=== PATIENT | male | born 1985 | race American Indian/Alaskan Native ===

== ENCOUNTER 2017-08-28 12:25 | Inpatient (IN) | payer MEDICAID ==
[2017-08-28 12:29] VITALS: O2SAT 97; BMI 23.5
--- NOTE | 2017-08-28 12:36 | ED PDOC ---
Psych Transfer Clearance - Clearance Statement Clearance Statement: Reviewed vital signs, lab results and transfer papers. Patient clinically stable for psychiatric admission.
[2017-08-28] MEDS ORDERED: Magnesium Hydroxide Susp 30 ml UD PO PRN (13:08)
[2017-08-28] MEDS ORDERED: DiphenhydrAMINE 50 mg/ml Inj IM PRN (13:08)
[2017-08-28] MEDS ORDERED: Alum-Mag Hydrox-Simethicone Susp (30 mL) PO PRN (13:08)
--- NOTE | 2017-08-28 13:10 | PCM.PSYCH ---
Initial Psychiatric Evaluation - Initial Psychiatric Evaluation Type of Admission: Voluntary Legal Status: Capacity Chief Complaint (in patient's own words): "I'm depressed and feeling suicidal" Patient's Reaction to Hospitalization: HPI: 32 yo male w/ h/o depression, cocaine/theresa/marijuana use, presents w/ depressed mood and active suicidal ideation to kill himself w/ plan to cut. Patient has a history of self injurious behaviors and states that he attempted to kill himself by cutting his wrists in Mar 2017 (patient has visible scars). He reports that he also has vague ideation to harm others. No current AH/VH , but he does reports a history of AH. He reports sleep and appetite disturbances, low energy, depressed mood and feelings of hopelessness. He states that he has no reason to live at this time. PPHx: H/o multiple past psychiatric admissions, but patient is not compliant with treatment or medications. H/o treatment with Remeron and Zoloft which he believes were helpful in the past. 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) Current Medications: Active Medications Generic Name Dose Route Start Last Admin Trade Name Freq PRN Reason Stop Dose Admin Acetaminophen 650 mg 08/28/17 13:08 Tylenol 325mg Tab PO Q4 PRN Pain, moderate (4-7) Al Hydrox/Mg Hydrox/Simethicone 30 ml 08/28/17 13:08 Maalox Plus 30 Ml PO Q4 PRN Dyspepsia Diphenhydramine HCl 50 mg 08/28/17 13:08 Benadryl IM Q6 PRN Extrapyramidal S/S Unable PO Diphenhydramine HCl 50 mg 08/28/17 13:08 Benadryl PO Q6 PRN Extrapyramidal Symptoms Haloperidol 5 mg 08/28/17 13:08 Haldol PO Q4 PRN Agitation Haloperidol Lactate 5 mg 08/28/17 13:08 Haldol IM Q4 PRN Agitation, Unable to Take PO Lorazepam 2 mg 08/28/17 13:08 Ativan IM Q4 PRN Anxiety/Agitation,Unable PO Lorazepam 2 mg 08/28/17 13:08 Ativan PO Q4 PRN Anxiety/Agitation Magnesium Hydroxide 30 ml 08/28/17 13:08 Milk Of Magnesia PO HS PRN Constipation Past Psychiatric History - Past Psychiatric History Previous Treatment History: Inpatient Pertinent Medical Hx (Current Medical&Sleep Prob, Allergies): Allergies Allergy/AdvReac Type Severity Reaction Status Date / Time haloperidol [From Haldol] Allergy SHORTNESS Verified 08/27/17 16:41 OF BREATH iodine Allergy RASH Verified 08/27/17 16:40 Review of Systems - Psychiatric Psychiatric: Abnormal Sleep Pattern, Anhedonia, Anxiety, Behavioral Changes, Change in Appetite, Depression, Difficulty Concentrating, Hopelessness, Irritability, Mood Swings, Suicidal Ideation Mental Status Examination - Personal Presentation Personal Presentation: Looks stated age - Affect Affect: Depressed, Other (Labile, Tearful) - Motor Activity Motor Activity: Psychomotor Agitation - Reliability in Providing Information Reliability in Providing Information: Fair - Speech Speech: Organized - Mood Mood: Depressed, Anxious - Formal Thought Process Formal Thought Process: No Impairment - Hallucinations/Delusions Additional comments: Denies AH/VH/paranoia/delusions - Obsessions/Compulsions Obsessions: No Compulsions: No - Cognitive Functions Orientation: Person, Place, Situation, Time Sensorium: Alert Attention/Concentration: Attentive Estimate of Intelligence: Average Judgement: Intact, as evidence by: Insight regarding need for hospitalization Memory: Recent intact, as evidence by: Ability to recall events of the day - Risk Risk: Suicidal, Diminished functioning - Strength & Assets Inventory Strength & Assets Inventory: Cooperative - Limitations Limitations: Other (Homelessness, Poverty, lack of social support) DSM 5 DX - DSM 5 DSM 5 Diagnosis: Substance Induced Mood Disorder; Cocaine Use Disorder; MDMA Use Disorder; Marijuana Use Disorder - Recommended/Plan of Treatment Treatment Recommendations and Plan of Treatment: Substance Induced Mood Disorder; Cocaine Use Disorder; MDMA Use Disorder; Marijuana Use Disorder -Admit to psychiatry -Individual and group therapy -Psychoeducation and motivational interviewing -Medicine consult -Start Remeron 15 mg PO HS -1:1 for suicide precaution; patient unable to contract for safety at this time -Disposition planning Projected ELOS: 5-8 days Discharge Plan and Discharge Criteria: Discharge when patient is psychiatrically stable - Smoking Cessation Smoking Cessation Initiated: No Reason for not providing: Patient declined
[2017-08-28] MEDS ORDERED: Albuterol-Ipratrop 3 mg / 0.5 (3 ml) UD INH PRN (13:11)
[2017-08-28] MEDS: Albuterol HFA 90 mcg/actuation (8 g) INH PRN (13:20)
--- NOTE | 2017-08-28 19:30 | PCM.BM ---
<Adel,Missy - Last Filed: 08/28/17 19:28> Treatment assets and liabiliti Patient Assests: ADL independent, cognitively intact Patient Liabilities: physical pain, poor support system, relationship conflicts - Milieu Protocol Maintain good personal hygiene: daily Encourage regular showers, every shift Remind patient to perform daily oral care, every shift Assist patient to perform ADL's Conduct patient checks and document Observation sheet: Q15 minutes, 1:1 Maintain personal safety: every shift Educate patient to report safety concerns to staff, every shift Monitor environment for contraband/sharps Medication safety: Monitor for expected outcome, potential side effects: every shift, Assess barriers to learning: every shift, Assess readiness for medication education: every shift Milieu Narrative: Substance Induced Mood Disorder; Cocaine Use Disorder; MDMA Use Disorder; Marijuana Use Disorder -Admit to psychiatry -Individual and group therapy -Psychoeducation and motivational interviewing -Medicine consult -Start Remeron 15 mg PO HS -1:1 for suicide precaution; patient unable to contract for safety at this time -Disposition planning Discharge/Continuing Care - Treatment Team Participation Patient/Family/SO Statement: Substance Induced Mood Disorder; Cocaine Use Disorder; MDMA Use Disorder; Marijuana Use Disorder -Admit to psychiatry -Individual and group therapy -Psychoeducation and motivational interviewing -Medicine consult -Start Remeron 15 mg PO HS -1:1 for suicide precaution; patient unable to contract for safety at this time -Disposition planning <Scott Lamb - Last Filed: 09/02/17 11:40> Family Contact Family involvement: Famliy/SO not involved Family contact: Patient declines to allow family contact at present Family contact name: Pt Denied. - Goals for Treatment Patient goals for treatment: Pt would like to be referred to a residential rehab. Discharge/Continuing Care - Education Needs Education Needs: Patient Medication, Patient Diagnosis/Disease Process, Patient Coping Skills, Patient Placement options, Patient Community resources, Patient Personal Hygiene/Grooming, Patient Aftercare Safety Plan - Discharge Discharge Criteria: Tolerates medication w/o severe side effects, Free of Suicidal thoughts, Free of paranoid thoughts, Free of agitation, Normal sleep pattern, No longer exhibiting s/s of withdrawal, Reduction of target symptoms Discharge to:: Home, With Family - Additional Comments 09/02/17 11:38 Pt was irritable, oppositional and threatening during treatment team. Pt again and again requested to be transferred to [facility] and had already requested to meet with a pt advocate. Pt has unrealistic expectations of a psychiatric hospital and was focused on concrete services and did not discuss any mental health symptoms or goals. - Treatment Team Participation Discussed with Family/SO: No Was Patient/Family/SO present at Treatment Team Meeting: Yes
[2017-08-29 07:25] LABS: BASO % 0.9 % (0.0-2.0); EOS # 0.5 K/uL (0.0-0.7); EOS % 12.2 % (0.0-4.0); HEMOGLOBIN 16.1 g/dL (12.0-18.0); LYMPH # 1.3 K/uL (1.0-4.3); LYMPH % 35.3 % (20.0-40.0); MEAN CELL VOLUME 92.9 fl (80.0-94.0); MEAN CORPUSCULAR HEMOGLOBIN 31.2 pg (27.0-31.0); MEAN CORPUSCULAR HGB CONC 33.6 g/dL (33.0-37.0); MEAN PLATELET VOLUME 8.1 fl (7.2-11.7); MONO # 0.3 K/uL (0.0-0.8); NEUT # 1.7 K/uL (1.8-7.0); NEUT % 44.6 % (50.0-75.0); NRBC % 0.2 % (0.0-0.0); RBC 5.15 Mil/uL (4.40-5.90); RED CELL DISTRIBUTION WIDTH 14.3 % (11.5-14.5); WHITE BLOOD COUNT 3.8 K/uL (4.8-10.8)
[2017-08-29 07:47] LABS: ALB/GLOB RATIO 1.3 (1.0-2.1); ALBUMIN 3.7 g/dL (3.5-5.0); ALT/SGPT 36 U/L (21-72); AST/SGOT 21 U/L (17-59); BLOOD UREA NITROGEN 16 mg/dl (9-20); CALCIUM 9.3 mg/dL (8.4-10.2); GFR AFRICAN-AMERICAN > 60; GFR NON-AFRICAN AMERICAN 60; HDL CHOLESTEROL 49 MG/DL (30-70)
[2017-08-29 07:58] LABS: LDL CHOLESTEROL 47 mg/dL (0-129)
[2017-08-29 08:02] LABS: T4 6.89 ug/dl (5.5-11.0)
--- NOTE | 2017-08-29 10:15 | CP.PCM.CON ---
<Juan Ruiz - Last Filed: 08/29/17 14:59> History of Present Illness - History of Present Illness History of Present Illness: Hospitalist Consult Note- Dr. Washington 32 y.o male with PMH of asthma seen and evaluated in the psychiatry unit for depression. Patient was seen in the ER for suicidal ideal and homicidal ideation for 2 days with worsening depression. Patient denies n/v/sob/cp/chills or chest pain. No pain anywhere. PMH: asthma PSH: b/l foot surgeries SH: reports cocaine, ecstasy, marijuana use, smoking cigarettes ALL: haloperiodol, iodine MEDS: see medication list Past Patient History - Past Social History Smoking Status: Heavy Smoker > 10 Cigarettes Daily - CARDIAC Hx Cardiac Disorders: No - PULMONARY Hx Asthma: Yes - NEUROLOGICAL Hx Neurological Disorder: No - HEENT Hx HEENT Problems: No - RENAL Hx Chronic Kidney Disease: No - ENDOCRINE/METABOLIC Hx Endocrine Disorders: No - HEMATOLOGICAL/ONCOLOGICAL Hx Blood Disorders: No - INTEGUMENTARY Hx Dermatological Problems: No - MUSCULOSKELETAL/RHEUMATOLOGICAL Hx Musculoskeletal Disorders: No Other/Comment: clubbed feet both - GASTROINTESTINAL Hx Gastrointestinal Disorders: No - GENITOURINARY/GYNECOLOGICAL Hx Genitourinary Disorders: No - PSYCHIATRIC Hx Substance Use: Yes - SURGICAL HISTORY Hx Surgeries: Yes Other/Comment: bilateral foot surgery - ANESTHESIA Hx Anesthesia: Yes Hx Anesthesia Reactions: No Meds Allergies/Adverse Reactions: Allergies Allergy/AdvReac Type Severity Reaction Status Date / Time haloperidol [From Haldol] Allergy SHORTNESS Verified 08/27/17 16:41 OF BREATH iodine Allergy RASH Verified 08/27/17 16:40 - Medications Medications: Current Medications Acetaminophen (Tylenol 325mg Tab) 650 mg PO Q4 PRN PRN Reason: Pain, moderate (4-7) Al Hydrox/Mg Hydrox/Simethicone (Maalox Plus 30 Ml) 30 ml PO Q4 PRN PRN Reason: Dyspepsia Albuterol (Ventolin Hfa 90 Mcg/Actuation (8 G)) 2 puff INH RQ6 PRN PRN Reason: Shortness of Breath Last Admin: 08/28/17 13:20 Dose: 2 puff Albuterol/Ipratropium (Duoneb 3 Mg/0.5 Mg (3 Ml) Ud) 3 ml INH RQ4 PRN PRN Reason: Shortness of Breath Diphenhydramine HCl (Benadryl) 50 mg IM Q6 PRN PRN Reason: Extrapyramidal S/S Unable PO Diphenhydramine HCl (Benadryl) 50 mg PO Q6 PRN PRN Reason: Extrapyramidal Symptoms Lorazepam (Ativan) 2 mg IM Q4 PRN PRN Reason: Anxiety/Agitation,Unable PO Lorazepam (Ativan) 2 mg PO Q4 PRN PRN Reason: Anxiety/Agitation Last Admin: 08/28/17 13:37 Dose: 2 mg Magnesium Hydroxide (Milk Of Magnesia) 30 ml PO HS PRN PRN Reason: Constipation Mirtazapine (Remeron) 15 mg PO HS TRACIE Last Admin: 08/28/17 21:38 Dose: 15 mg Olanzapine (Zyprexa Inj) 10 mg IM Q12 PRN PRN Reason: Agitation Physical Exam - Constitutional Appears: Well, Non-toxic, No Acute Distress - Head Exam Head Exam: ATRAUMATIC, NORMOCEPHALIC - Eye Exam Eye Exam: EOMI, Normal appearance, PERRL Pupil Exam: NORMAL ACCOMODATION - ENT Exam ENT Exam: Mucous Membranes Moist, Normal Exam - Neck Exam Neck exam: Positive for: Normal Inspection - Respiratory Exam Respiratory Exam: Clear to Auscultation Bilateral, NORMAL BREATHING PATTERN. absent: Prolonged Expiratory Phase, Rales, Rhonchi, Wheezes, Respiratory Distress, Stridor - Cardiovascular Exam Cardiovascular Exam: REGULAR RHYTHM, +S1, +S2 - GI/Abdominal Exam GI & Abdominal Exam: Normal Bowel Sounds, Soft - Extremities Exam Extremities exam: Positive for: normal capillary refill. Negative for: calf tenderness - Neurological Exam Neurological exam: Alert, Oriented x3 - Psychiatric Exam Psychiatric exam: Normal Affect, Normal Mood - Skin Skin Exam: Dry, Intact, Normal Color, Warm Results - Vital Signs Recent Vital Signs: Last Vital Signs Temp 97.3 F L 08/29/17 09:00 Pulse 86 08/29/17 09:00 Resp 18 08/29/17 09:00 BP 118/68 08/29/17 09:00 Pulse Ox 97 08/28/17 12:29 - Labs Result Diagrams: 08/29/17 06:45 08/29/17 06:45 Labs: Laboratory Results - last 24 hr 08/29/17 08/29/17 06:45 06:45 WBC 3.8 L RBC 5.15 Hgb 16.1 Hct 47.8 MCV 92.9 MCH 31.2 H MCHC 33.6 RDW 14.3 Plt Count 207 MPV 8.1 Neut % (Auto) 44.6 L Lymph % (Auto) 35.3 Pitkin % (Auto) 7.0 Eos % (Auto) 12.2 H Baso % (Auto) 0.9 Neut # (Auto) 1.7 L Lymph # (Auto) 1.3 Pitkin # (Auto) 0.3 Eos # (Auto) 0.5 Baso # (Auto) 0.0 Sodium 142 Potassium 4.3 Chloride 101 Carbon Dioxide 29 Anion Gap 16 BUN 16 Creatinine 1.4 Est GFR ( Amer) > 60 Est GFR (Non-Af Amer) 60 Random Glucose 91 Calcium 9.3 Total Bilirubin 1.5 H AST 21 ALT 36 Alkaline Phosphatase 37 L Total Protein 6.6 Albumin 3.7 Globulin 2.9 Albumin/Globulin Ratio 1.3 Triglycerides 56 Cholesterol 114 LDL Cholesterol Direct 47 HDL Cholesterol 49 Thyroxine (T4) 6.89 TSH 3rd Generation 0.70 Assessment & Plan - Assessment and Plan (Free Text) Assessment: 32 y.o male with PMH of asthma admitted for worsening depression with suicidal ideation Plan: 1. Worsening depression/suicidal ideation -management per psychiatry 2. Asthma -albuterol prn <James Washington - Last Filed: 08/29/17 16:42> Meds - Medications Medications: Current Medications Acetaminophen (Tylenol 325mg Tab) 650 mg PO Q4 PRN PRN Reason: Pain, moderate (4-7) Al Hydrox/Mg Hydrox/Simethicone (Maalox Plus 30 Ml) 30 ml PO Q4 PRN PRN Reason: Dyspepsia Albuterol (Ventolin Hfa 90 Mcg/Actuation (8 G)) 2 puff INH RQ6 PRN PRN Reason: Shortness of Breath Last Admin: 08/28/17 13:20 Dose: 2 puff Albuterol/Ipratropium (Duoneb 3 Mg/0.5 Mg (3 Ml) Ud) 3 ml INH RQ4 PRN PRN Reason: Shortness of Breath Diphenhydramine HCl (Benadryl) 50 mg IM Q6 PRN PRN Reason: Extrapyramidal S/S Unable PO Diphenhydramine HCl (Benadryl) 50 mg PO Q6 PRN PRN Reason: Extrapyramidal Symptoms Lorazepam (Ativan) 2 mg IM Q4 PRN PRN Reason: Anxiety/Agitation,Unable PO Lorazepam (Ativan) 1 mg PO TID PRN PRN Reason: Anxiety Magnesium Hydroxide (Milk Of Magnesia) 30 ml PO HS PRN PRN Reason: Constipation Mirtazapine (Remeron) 15 mg PO HS TRACIE Last Admin: 08/28/17 21:38 Dose: 15 mg Olanzapine (Zyprexa Inj) 10 mg IM Q12 PRN PRN Reason: Agitation Topiramate (Topamax) 50 mg PO BID TRACIE Results - Vital Signs Recent Vital Signs: Last Vital Signs Temp 97.4 F L 08/29/17 16:26 Pulse 88 08/29/17 16:26 Resp 20 08/29/17 16:26 BP 120/70 08/29/17 16:26 Pulse Ox 97 08/28/17 12:29 - Labs Result Diagrams: 08/29/17 06:45 08/29/17 06:45 Labs: Laboratory Results - last 24 hr 08/29/17 08/29/17 08/29/17 06:45 06:45 06:45 WBC 3.8 L RBC 5.15 Hgb 16.1 Hct 47.8 MCV 92.9 MCH 31.2 H MCHC 33.6 RDW 14.3 Plt Count 207 MPV 8.1 Neut % (Auto) 44.6 L Lymph % (Auto) 35.3 Pitkin % (Auto) 7.0 Eos % (Auto) 12.2 H Baso % (Auto) 0.9 Neut # (Auto) 1.7 L Lymph # (Auto) 1.3 Pitkin # (Auto) 0.3 Eos # (Auto) 0.5 Baso # (Auto) 0.0 Sodium 142 Potassium 4.3 Chloride 101 Carbon Dioxide 29 Anion Gap 16 BUN 16 Creatinine 1.4 Est GFR ( Amer) > 60 Est GFR (Non-Af Amer) 60 Random Glucose 91 Hemoglobin A1c 4.7 Calcium 9.3 Total Bilirubin 1.5 H AST 21 ALT 36 Alkaline Phosphatase 37 L Total Protein 6.6 Albumin 3.7 Globulin 2.9 Albumin/Globulin Ratio 1.3 Triglycerides 56 Cholesterol 114 LDL Cholesterol Direct 47 HDL Cholesterol 49 Thyroxine (T4) 6.89 TSH 3rd Generation 0.70 RPR 08/29/17 06:45 WBC RBC Hgb Hct MCV MCH MCHC RDW Plt Count MPV Neut % (Auto) Lymph % (Auto) Pitkin % (Auto) Eos % (Auto) Baso % (Auto) Neut # (Auto) Lymph # (Auto) Pitkin # (Auto) Eos # (Auto) Baso # (Auto) Sodium Potassium Chloride Carbon Dioxide Anion Gap BUN Creatinine Est GFR ( Amer) Est GFR (Non-Af Amer) Random Glucose Hemoglobin A1c Calcium Total Bilirubin AST ALT Alkaline Phosphatase Total Protein Albumin Globulin Albumin/Globulin Ratio Triglycerides Cholesterol LDL Cholesterol Direct HDL Cholesterol Thyroxine (T4) TSH 3rd Generation RPR Nonreactive
--- NOTE | 2017-08-29 15:05 | PCM.PYCHPN ---
Psychiatric Progress Note - Psychiatric Progress Note Patient seen today, length of contact: pt evaluated discussed with team chart reviewed Patient Chief Complaint: I am tired and depressed Problems Identified/Issues Discussed: pt seen in bed, poor eye contact, irritable mood and affect, reported feeling depressed and tired, pt stated he used Moly and cocaine, currently gowing through withdrawals, pt denied any current suicidal ideations, pt had an anger episode in the dinning room, on further evaluation stated he needs help with housing on discharge discussed with pt referral to rehab on discharge pt denied any current homicidal ideations or perceptual disturbances, no reported side effect of medications DSM 5 Symptoms Update: cocaine inducced mood disorder with depressive features cocaine use diorder MDMA use disorder Medication Change: Yes (start risperidone and topamax) Medical Record Reviewed: Yes Mental Status Examination - Cognitive Function Orientation: Person, Place, Situation, Time Attention: Poor Fund of Knowledge: Poor Decription of patient's judgement and insights: impaired insight and poor judgement - Mood Mood: Depressed, Anxious - Affect Affect: Depressed, Other (Labile, Tearful) - Speech Speech: Loud - Formal Thought Process Formal Thought Process: Circumstantial Psychotic Thoughts and Behaviors: pt denied any current perceptual disturbances, non elicited - Suicidal Ideation Suicidal Ideation: No - Homicidal Ideation Homicidal Ideation: No Goal/Treatment Plan - Goal/Treatment Plan Need for Continued Stay: Severe depression anxiety, Discharge may exacerbated symptoms Progress Toward Problem(s) and Goals/Treatment Plan: continure with remeron start topamax 50mg bid Motivational, group and supportive therapy
--- NOTE | 2017-08-30 18:04 | PCM.PYCHPN ---
Psychiatric Progress Note - Psychiatric Progress Note Patient seen today, length of contact: pt evaluated discussed with team chart reviewed Patient Chief Complaint: I am tired and depressed, I do not want to attaend groups Problems Identified/Issues Discussed: pt seen in bed, poor eye contact, irritable mood and affect, continues to present with depressed mood and affect, anhedonia, poor energy, currently continues to be gowing through withdrawals, pt denied any current suicidal ideations, pt had an anger episode when asjked to attend groups, non compliant with treatment, needs alot of encouragement to take medications pt denied any current homicidal ideations or perceptual disturbances, no reported side effect of medications DSM 5 Symptoms Update: polysubstance use major depression Medication Change: Yes (start neurontin) Medical Record Reviewed: Yes Mental Status Examination - Cognitive Function Orientation: Person, Place, Situation, Time Attention: Poor Fund of Knowledge: Poor Decription of patient's judgement and insights: impaired insight and poor judgement - Mood Mood: Depressed, Anxious - Affect Affect: Depressed, Other (Labile, Tearful) - Speech Speech: Loud - Formal Thought Process Formal Thought Process: Circumstantial Psychotic Thoughts and Behaviors: pt denied any current perceptual disturbances, non elicited - Suicidal Ideation Suicidal Ideation: No - Homicidal Ideation Homicidal Ideation: No Goal/Treatment Plan - Goal/Treatment Plan Need for Continued Stay: Severe depression anxiety, Discharge may exacerbated symptoms Progress Toward Problem(s) and Goals/Treatment Plan: continure with remeron wellbutrin 75mg neurontin 100mg tid encourage pt to attend groups Motivational, group and supportive therapy
--- NOTE | 2017-08-31 15:45 | PCM.PYCHPN ---
Psychiatric Progress Note - Psychiatric Progress Note Patient seen today, length of contact: pt evaluated discussed with team chart reviewed Patient Chief Complaint: I want to go to another hospital because I have a pillowcase cutter there Problems Identified/Issues Discussed: pt evaluated with the treatment team, pt requesting to go to [facility] as he is linked there to a case manger and anticipates more help with his housing problems, pt was able to meet with pt advocate and understands he could not be transferred as per hospital policy pt continues to be depressed anhedonic seclusive in his room, needed a lot of encouragement to attend few groups continues to present as hopeless and helpless denied any current suicidal ideations plan or intent on the unit denied homicidal ideations denied command hallucinations DSM 5 Symptoms Update: major depression polysubstance use disorder Medication Change: Yes (increase neurontin and wellbutrin) Medical Record Reviewed: Yes Mental Status Examination - Cognitive Function Orientation: Person, Place, Situation, Time Attention: WNL Concentration: WNL Association: WNL Fund of Knowledge: WNL Decription of patient's judgement and insights: partial insight and poor judgement - Mood Mood: Depressed, Anxious - Affect Affect: Depressed, Other (Labile, Tearful) - Speech Speech: Loud - Formal Thought Process Formal Thought Process: Circumstantial Psychotic Thoughts and Behaviors: pt denied any current perceptual disturbances, non elicited - Suicidal Ideation Suicidal Ideation: No - Homicidal Ideation Homicidal Ideation: No Goal/Treatment Plan - Goal/Treatment Plan Need for Continued Stay: Severe depression anxiety, Discharge may exacerbated symptoms Progress Toward Problem(s) and Goals/Treatment Plan: continure with remeron wellbutrin 100mg bid neurontin 100mg tid encourage pt to attend groups Motivational, group and supportive therapy
--- NOTE | 2017-09-01 14:23 | PCM.PYCHPN ---
Psychiatric Progress Note - Psychiatric Progress Note Patient seen today, length of contact: pt evaluated discussed with team chart reviewed Patient Chief Complaint: I STILL GET IRRITABLE AND HYPER Problems Identified/Issues Discussed: pt evaluated , MORE VISIBLE ON THE UNIT, LESS SECLUSIVE, INTERACTING WITH OTHER PEERS AND ATTENDING GROUPS, pt presenting with labile affect, irritability episodes of poor impulse control , discussed with pt increasing neurontin for anxiety and mood stabilization also increase in remeron for poor sleep discussed with pt possible referral to inpatient rehab on discharge pt denied any current suicidal or homicidal ideations denied perceptual disturbances. no reported side effects of medications DSM 5 Symptoms Update: bipolar disorder poly substance use disorder Medication Change: Yes (increase neurontin and remeron) Medical Record Reviewed: Yes Mental Status Examination - Cognitive Function Orientation: Person, Place, Situation, Time Attention: WNL Concentration: WNL Association: WNL Fund of Knowledge: WN Decription of patient's judgement and insights: partial insight and poor judgement - Mood Mood: Depressed, Anxious - Affect Affect: Depressed, Other (Labile, Tearful) Additional comments: labile, irritable - Speech Speech: Loud - Formal Thought Process Formal Thought Process: Circumstantial Psychotic Thoughts and Behaviors: pt denied any current perceptual disturbances, non elicited - Suicidal Ideation Suicidal Ideation: No - Homicidal Ideation Homicidal Ideation: No Goal/Treatment Plan - Goal/Treatment Plan Need for Continued Stay: Severe depression anxiety, Discharge may exacerbated symptoms Progress Toward Problem(s) and Goals/Treatment Plan: increase remeron to 30mg qhs wellbutrin 100mg bid neurontin 300mg tid encourage pt to attend groups Motivational, group and supportive therapy
[2017-09-02] MEDS: Albuterol HFA 90 mcg/actuation (8 g) INH PRN (10:50)
--- NOTE | 2017-09-02 15:40 | PCM.PYCHPN ---
Psychiatric Progress Note - Psychiatric Progress Note Patient seen today, length of contact: pt evaluated discussed with team chart reviewed Patient Chief Complaint: I still could not sleep and I loose my temper easily Problems Identified/Issues Discussed: pt evaluated , reported continues to have early insomnia, poor sleep pt presenting with labile affect, irritability episodes of poor impulse control , discussed with pt increasing neurontin for anxiety and mood stabilization also increase in remeron for poor sleep discussed with pt possible referral to inpatient rehab on discharge pt denied any current suicidal or homicidal ideations denied perceptual disturbances. no reported side effects of medications DSM 5 Symptoms Update: polysubstance use bipolar disorder antisocial personality Medication Change: Yes (start seroquel) Medical Record Reviewed: Yes Mental Status Examination - Cognitive Function Orientation: Person, Place, Situation, Time Attention: WNL Concentration: WNL Association: WNL Fund of Knowledge: WN Decription of patient's judgement and insights: partial insight and poor judgement - Mood Mood: Depressed, Anxious - Affect Affect: Depressed, Other (Labile, Tearful) - Speech Speech: Loud - Formal Thought Process Formal Thought Process: Circumstantial Psychotic Thoughts and Behaviors: pt denied any current perceptual disturbances, non elicited - Suicidal Ideation Suicidal Ideation: No - Homicidal Ideation Homicidal Ideation: No Goal/Treatment Plan - Goal/Treatment Plan Need for Continued Stay: Severe depression anxiety, Discharge may exacerbated symptoms Progress Toward Problem(s) and Goals/Treatment Plan: increase remeron to 30mg qhs wellbutrin 100mg bid neurontin 300mg tid start seroquel 100mg qhs encourage pt to attend groups Motivational, group and supportive therapy
[2017-09-03] MEDS: Albuterol HFA 90 mcg/actuation (8 g) INH PRN (07:34)
--- NOTE | 2017-09-03 16:04 | PCM.PYCHPN ---
Psychiatric Progress Note - Psychiatric Progress Note Patient seen today, length of contact: pt evaluated discussed with team chart reviewed Patient Chief Complaint: I slept better with seroquel and I am calmer today Problems Identified/Issues Discussed: pt evaluated , improved sleep, mood better and less irritable affect calmer , no current behavioral disturbances reported by staff discussed with pt possible referral to inpatient rehab on discharge pt denied any current suicidal or homicidal ideations denied perceptual disturbances. no reported side effects of medications DSM 5 Symptoms Update: polysubstance use bipolar disorder Medication Change: Yes (increase seroquel) Medical Record Reviewed: Yes Mental Status Examination - Cognitive Function Orientation: Person, Place, Situation, Time Attention: WNL Concentration: WNL Association: WNL Fund of Knowledge: [facility] Decription of patient's judgement and insights: partial insight and poor judgement - Mood Mood: Depressed, Anxious - Affect Affect: Depressed, Other (Labile, Tearful) - Speech Speech: Appropriate - Formal Thought Process Formal Thought Process: Circumstantial Psychotic Thoughts and Behaviors: pt denied any current perceptual disturbances, non elicited - Suicidal Ideation Suicidal Ideation: No - Homicidal Ideation Homicidal Ideation: No Goal/Treatment Plan - Goal/Treatment Plan Need for Continued Stay: Severe depression anxiety, Discharge may exacerbated symptoms Progress Toward Problem(s) and Goals/Treatment Plan: remeron o 30mg qhs wellbutrin 100mg bid neurontin 300mg tid increase seroquel 200mg qhs encourage pt to attend groups Motivational, group and supportive therapy
--- NOTE | 2017-09-04 13:54 | PCM.PYCHPN ---
Psychiatric Progress Note - Psychiatric Progress Note Patient seen today, length of contact: pt evaluated discussed with team chart reviewed Patient Chief Complaint: I am feeling better Problems Identified/Issues Discussed: pt evaluated , improved sleep, mood better and less irritable affect calmer , no current behavioral disturbances reported by staff discussed with pt possible referral to inpatient rehab on discharge pt denied any current suicidal or homicidal ideations denied perceptual disturbances. no reported side effects of medications DSM 5 Symptoms Update: bipolar disorder polysubstance use disorder Medication Change: No Medical Record Reviewed: Yes Mental Status Examination - Cognitive Function Orientation: Person, Place, Situation, Time Attention: WNL Concentration: WNL Association: [facility] Fund of Knowledge: [facility] Decription of patient's judgement and insights: partial insight and poor judgement - Mood Mood: Depressed, Anxious - Affect Affect: Depressed, Other (Labile, Tearful) - Speech Speech: Appropriate - Formal Thought Process Formal Thought Process: Circumstantial Psychotic Thoughts and Behaviors: pt denied any current perceptual disturbances, non elicited - Suicidal Ideation Suicidal Ideation: No - Homicidal Ideation Homicidal Ideation: No Goal/Treatment Plan - Goal/Treatment Plan Need for Continued Stay: Severe depression anxiety, Discharge may exacerbated symptoms Progress Toward Problem(s) and Goals/Treatment Plan: remeron 30mg qhs wellbutrin 100mg bid neurontin 300mg tid seroquel 200mg qhs Motivational, group and supportive therapy
[2017-09-05] MEDS ORDERED: DiphenhydrAMINE 50 mg/ml Inj IM PRN (09:59)
[2017-09-05] MEDS: Albuterol HFA 90 mcg/actuation (8 g) INH PRN (13:38)
--- NOTE | 2017-09-05 14:52 | PCM.PYCHPN ---
Psychiatric Progress Note - Psychiatric Progress Note Patient seen today, length of contact: pt evaluated discussed with team chart reviewed Patient Chief Complaint: I need to know where I AM going Problems Identified/Issues Discussed: pt presenting with angry mood and affect, irritable, explosive throwing his tray in the dinning room, after discussing with him his discharge plan, pt very angry about the possibility of being discharged to a [facility], pt has been verbally and physically threatening towards staff and other patients, he had to be chemically restrained with thorazine and benadryl pt educated about coping skills and discussed with pt increasing dose of seroquel to 300mg qhs for mood stabilization, pt has been refusing trileptal and depakote reporteing side effects including tachycardia and weight gain pt agreed compliance with treatment and attending groups latter denied any current suicidal or homicidal ideations denied command hallucinations DSM 5 Symptoms Update: bipolar disorder polysubstance use disorder Medication Change: Yes (increase seroquel) Medical Record Reviewed: Yes Mental Status Examination - Cognitive Function Orientation: Person, Place, Situation, Time Attention: WNL Concentration: WNL Association: WNL Fund of Knowledge: WNL Decription of patient's judgement and insights: partial insight and poor judgement - Mood Mood: Depressed, Anxious - Affect Affect: Depressed, Other (Labile, Tearful) Additional comments: irritable, angry , labile - Speech Speech: Loud - Formal Thought Process Formal Thought Process: Circumstantial Psychotic Thoughts and Behaviors: pt denied any current perceptual disturbances, non elicited - Suicidal Ideation Suicidal Ideation: No - Homicidal Ideation Homicidal Ideation: No Goal/Treatment Plan - Goal/Treatment Plan Need for Continued Stay: Severe depression anxiety, Discharge may exacerbated symptoms Progress Toward Problem(s) and Goals/Treatment Plan: remeron 30mg qhs wellbutrin 100mg bid neurontin 300mg tid increase seroquel to 300mg qhs Motivational, group and supportive therapy
[2017-09-05 16:31] VITALS: RESP 20
[2017-09-06 08:23] VITALS: BP 139/67; PULSE 97; TEMP 97.5
--- NOTE | 2017-09-06 12:28 | PCM.PYCHDC ---
Mental Status Examination - Mental Status Examination Orientation: Person, Place, Situation Memory: Intact Mood: Neutral Affect: Broad Speech: Appropriate Attention: WNL Concentration: WNL Association: WNL Fund of Knowledge: WNL Formal Thought Process: No Impairment Description of patient's judgement and insight: partial insight and poor judgement Psychotic Thoughts and Behaviors: pt denied any current perceptual disturbances, non elicited Suicidal Ideation: No Current Homicidal Ideation?: No Discharge Summary - Discharge Note Reason for Hospitalization: 2 yo male w/ h/o depression, cocaine/theresa/marijuana use, presents w/ depressed mood and active suicidal ideation to kill himself w/ plan to cut. Patient has a history of self injurious behaviors and states that he attempted to kill himself by cutting his wrists in Mar 2017 (patient has visible scars). He reports that he also has vague ideation to harm others. No current AH/VH, but he does reports a history of AH. He reports sleep and appetite disturbances, low energy, depressed mood and feelings of hopelessness. no active suicidal ideations or plan or intent on the unit. Consultations:: List each consultation separately and include: 1. Reason for request. 2. Findings. 3. Follow-up Summary of Hospital Course include:: 1. Description of specific treatment plan utilized for patients during their course of treatmen. 2. Summarize the time- course for resolution of acute symptoms and/or regressed behaviors. 3. Describe issues identified and worked on during hospitalization. 4. Describe medication utilized. 5. Describe medical problems identified and treated. 6. Reassessment of suicide risk Summary of Hospital Course: pt on admission was irritable depressed angry labile due to ecstasy withdrawal and cocaine withdrawal, pt was placed on remeron, wellbutrin, seroquel and neurontin pt mood and affect gradually became brighter, with improved sleep and appetite pt was provided motivational group and supportive therapy pt was educated about the risk of relapse and possible consequences on discharge on discahrge pt mental status was stable/ pt at current mental status denied any current suicdal ideation, plan or intent, denied homicidal ideations denied perceptual; disturbances, no reported side effects of medications pt at current mental status not danger to self or others follow up plan arranged by social media designer, with collaboration with pt insurance agent, with referrals to inpatient rehab - Final Diagnosis (DSM 5) Condition upon Discharge: STABLE DSM 5: 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, cocaine and MDMA usw disorder bipolar disorder mixed Disposition: HOME/ ROUTINE Follow-up Treatment Plan: remeron 30mg qhs wellbutrin 100mg bid neurontin 300mg tid increase seroquel to 300mg qhs Motivational, group and supportive therapy Prescriptions/Medication Reconciliation: buPROPion [Wellbutrin] 100 mg PO BID 30 Days #60 tab Gabapentin [Neurontin] 300 mg PO TID 30 Days #90 cap hydrOXYzine Pamoate [Vistaril] 50 mg PO Q8 PRN 30 Days #90 cap PRN Reason: Anxiety Mirtazapine [Remeron] 30 mg PO HS 30 Days #30 tab QUEtiapine [SEROquel] 300 mg PO HS 30 Days #30 tab - Smoking Cessation Smoking Cessation Medication prescribed: No
== END 2017-09-06 15:24 | disposition home or self-care (01) | DRG 748 ==
LOC: H.ER 12:25 → H.ERHOLD 12:35 → H.PSYCH 13:06
PROVIDERS: ADMIT Psychiatry & Neurology Psychiatry; ATTEND Psychiatry & Neurology Psychiatry
PROC: HZ52ZZZ Individual Psychotherapy for Substance Abuse Treatment, Cognitive-Behavioral (ICD-10-PCS; principal; 2017-08-28)
PROC: GZHZZZZ Group Psychotherapy (ICD-10-PCS; 2017-08-28)
PROC: GZ58ZZZ Individual Psychotherapy, Cognitive-Behavioral (ICD-10-PCS; 2017-08-28)
DX: F14.24 Cocaine dependence with cocaine-induced mood disorder (principal); F14.23 Cocaine dependence with withdrawal; R45.851 Suicidal ideations; F12.288 Cannabis dependence with other cannabis-induced disorder; F31.60 Bipolar disorder, current episode mixed, unspecified; F60.2 Antisocial personality disorder; F41.9 Anxiety disorder, unspecified; J45.909 Unspecified asthma, uncomplicated; G47.00 Insomnia, unspecified; F17.210 Nicotine dependence, cigarettes, uncomplicated; Z59.0 Homelessness; Z91.041 Radiographic dye allergy status